=== PATIENT | male | born 1945 | race Caucasian/White ===

== ENCOUNTER → 2018-04-17 12:44 | Outpatient (CLI) | payer OTHER, SELFPAY ==
[2018-04-17 15:21] LABS: Blood Urea Nitrogen 18 mg/dL (9-20); Calcium 9.9 mg/dL (8.4-10.2); Carbon Dioxide 28 mmol/L (22-32); Chloride 100 mmol/L (98-107); Estimated Glomerular Filt Rate 59.7 mL/min (>60); Glucose 93 mg/dL (80-110); HEMOLYSIS < 15 (0-50); Potassium 5.2 mmol/L (3.4-5.1); Sodium 140 mmol/L (137-145)
== END ==
PROVIDERS: PCP Family Medicine; Visit Provider Family Medicine
DX: N18.3 Chronic kidney disease, stage 3 (moderate) (principal)
CPT/HCPCS: 36415; 80048

== ENCOUNTER → 2019-06-09 09:21 | Outpatient (CLI) | payer OTHER, SELFPAY ==
[2019-06-09 11:08] LABS: BUN Creatinine Ratio 15.5 (6-22); Blood Urea Nitrogen 17 mg/dL (9-20); Carbon Dioxide 23 mmol/L (22-32); Chloride 104 mmol/L (98-107); Estimated Glomerular Filt Rate > 60.0 mL/min (>60); Glucose 106 mg/dL (80-110); HEMOLYSIS < 15 (0-50); Potassium 4.6 mmol/L (3.4-5.1); Sodium 139 mmol/L (137-145)
== END ==
PROVIDERS: PCP Student in an Organized Health Care Education/Training Program; Visit Provider Student in an Organized Health Care Education/Training Program
DX: N18.3 Chronic kidney disease, stage 3 (moderate) (principal); E55.9 Vitamin D deficiency, unspecified
CPT/HCPCS: 36415; 80048; 82306

== ENCOUNTER 2020-10-12 15:30 | Emergency (ER) | payer OTHER, SELFPAY ==
[2020-10-12 15:43] VITALS: BP 151/73; PULSE 69; RESP 16; TEMP 36.4; O2SAT 97; BMI 31.5
--- NOTE | 2020-10-12 15:50 | ED.EXTPRO ---
HPI - Extremity Problem <JULIO DouglasP - Last Filed: 10/12/20 16:36> General Chief complaint: Extremity Problem,Nontraumatic Stated complaint: thinks broke his right foot Time Seen by Provider: 10/12/20 15:39 Source: patient Mode of arrival: Wheelchair Limitations: no limitations History of Present Illness HPI Narrative: This is a 75-year-old male, former smoker, who has past medical history significant for hyperlipidemia and cataract surgery presents to ED with chief complain of right lateral foot pain for last 3 days. Patient reports he was fishing when he noticed the onset of pain and wearing a boot and walked around alot on a boat. Patient reports swelling and redness to left lateral foot. Denies noticing any open skin or skin injury. He denies history of gout. Denies fever, chills, nausea or vomiting. Patient was not able to recall twisting his ankle or injuring his foot. Patient has been walking on his heel since this aggravates discomfort. Patient reports intact sensation distally. Also pain increases with stretching lateral foot ligaments such as inverting of the ankle. He had taken ibuprofen last night for discomfort. Related Data Home Medications Medication Instructions Recorded Confirmed famotidine 10 mg tablet 10 mg PO QDAY #0 01/03/19 07/22/20 Previous Rx's Medication Instructions Recorded simvastatin 10 mg tablet 10 mg PO BEDTIME #90 tab 03/31/20 Allergies Allergy/AdvReac Type Severity Reaction Status Date / Time niacin [NIACIN] Allergy Severe SEVERE Verified 10/12/20 16:01 FLUSHING dust Allergy Intermediate ITCHY Uncoded 10/12/20 16:01 WATERY EYES, CONGESTION, SNEEZING Review of Systems <JULIO DouglasP - Last Filed: 10/12/20 16:36> Review of Systems Narrative: General: Denies fever, chills, fatigue, malaise, sweats. Respiratory: Denies dyspnea, cough, wheezing, hemoptysis, sputum. Cardiovascular: Denies chest pain, palpitations, orthopnea, edema. Gastrointestinal: Denies nausea, vomiting, abdominal pain, diarrhea, constipation, melena. : Denies dysuria, frequency, incontinence, hematuria, urinary retention. Musculoskeletal: See HPI Skin: See HPI Patient History <JULIO DouglasP - Last Filed: 10/12/20 16:36> Medical History Chicken pox Chronic back pain (~1998) Foot pain (~1994) Fractures Hearing loss Hemorrhoid (~2016) Hyperlipidemia Measles Mumps Ruptured disk (~1999) Seasonal allergies (~1989) Vision disorder Surgical History Anesthesia History of colonoscopy Family History Father Cancer Mother Hypertension Brother Heart disease Hyperlipidemia Hypertension Grandmother Diabetes mellitus Social History Smoking Status: Former smoker Smoking Status: Former smoker alcohol intake frequency: 0-2 drinks per day Substance Use Type: does not use Exam <MARGARITO Douglas - Last Filed: 10/12/20 16:36> Narrative Exam Narrative: General appearance: well developed, well nourished, in no acute distress. Head: normocephalic, atraumatic, no scalp lesions, non-tender. ENT: Hearing grossly intact. Airway patent. Neck/Thyroid: neck supple, full range of motion, no visible masses or meningeal signs. No JVD, non-tender without lymphadenopathy. Skin: Warm and dry and appropriate color for ethnicity. Mild diet fused erythema to dorsal aspect of lateral foot in 4th and little toe and metatarsal. No significant warm to touch in left foot when compared with right foot. No open skin lesions or puncture wound appreciated on left foot in dorsal, lateral or plantar aspect. Heart: no clubbing, no cyanosis, no edema. Lungs: Breathing even and unlabored. No stridor. No accessory muscles used. Able to speak in full sentences. Chest: normal shape and expansion. Abdomen: non-obese, non-distended. Neurologic: alert and oriented. Cognitive exam, RUBBER TUBING BACKER and PNS grossly intact on informal exam. Psych: good eye contact, normal affect. Initial Vital Signs Initial Vital Signs: Vital Signs Temperature 97.6 F 10/12/20 15:43 Pulse Rate 69 10/12/20 15:43 Respiratory Rate 16 10/12/20 15:43 Blood Pressure 151/73 H 10/12/20 15:43 Pulse Oximetry 97 10/12/20 15:43 Extrem Right lower extremity: ankle Details: normal to inspection, no edema and normal ROM; no swelling and foot Details: normal capillary refill, abnormal to inspection, tenderness, toes with normal ROM, edema Location: of the dorsal foot Location: laterally, vascular exam Details: dorsalis pedis pulse present, tendon exam Details: active flexion normal and active extension normal and motor-sensory exam Details: light-touch normal; no abrasion, no laceration, no ecchymosis, no crepitus, no foreign bodies and no puncture wound <Marely Nelson DO - Last Filed: 10/15/20 10:05> Initial Vital Signs Initial Vital Signs: Vital Signs Temperature 97.6 F 10/12/20 15:43 Pulse Rate 69 10/12/20 15:43 Respiratory Rate 16 10/12/20 15:43 Blood Pressure 151/73 H 10/12/20 15:43 Pulse Oximetry 97 10/12/20 15:43 Scores <MARGARITO Douglas - Last Filed: 10/12/20 16:36> GCS Rachelle coma scale eye opening: Spontaneous [place] coma scale verbal response: Orientated Rachelle coma scale motor response: Obey commands [place] coma scale total score: 15 qSOFA Altered Mental Status (GCS <15): No Respiratory rate greater than/equal to 22: No Systolic blood pressure less than or equal to 100: No qSOFA Total: 0 0-1 Not High Risk 1-3 High risk Course <MARGARITO Douglas - Last Filed: 10/12/20 16:36> Orders Ordered: Discontinued Medications Acetaminophen (Acetaminophen 325 Mg Tablet) 650 mg PO NOW ONE Stop: 10/12/20 15:50 Last Admin: 10/12/20 16:02 Dose: 650 mg Documented by: TEODORO Ibuprofen (Ibuprofen 400 Mg Tablet) 400 mg PO NOW ONE Stop: 10/12/20 15:50 Last Admin: 10/12/20 16:02 Dose: 400 mg Documented by: TEODORO Vital Signs Vital signs: Vital Signs - 8 hr 10/12/20 15:43 Temperature 97.6 F Pulse Rate 69 Respiratory Rate 16 Blood Pressure 151/73 H Pulse Oximetry 97 <Marely Nelson DO - Last Filed: 10/15/20 10:05> Orders Ordered: Discontinued Medications Acetaminophen (Acetaminophen 325 Mg Tablet) 650 mg PO NOW ONE Stop: 10/12/20 15:50 Last Admin: 10/12/20 16:02 Dose: 650 mg Documented by: TEODORO Ibuprofen (Ibuprofen 400 Mg Tablet) 400 mg PO NOW ONE Stop: 10/12/20 15:50 Last Admin: 10/12/20 16:02 Dose: 400 mg Documented by: TEODORO Vital Signs Vital signs: Vital Signs - 8 hr 10/12/20 15:43 Temperature 97.6 F Pulse Rate 69 Respiratory Rate 16 Blood Pressure 151/73 H Pulse Oximetry 97 MDM - Extremity (Nontraumatic) <MARGARITO Douglas - Last Filed: 10/12/20 16:36> Differential Diagnosis Differential diagnosis: Likely cellulitis and other (fracture, contusion, foot strain) Medical Records Attestation: I reviewed the patient's medical records. Imaging Data XR-Foot RT: Radiologist's Impression: [address] [id number] ReportSigned Patient: Jt Collins RMR#: [id number]: [id number]:[id number]/Sex: 75 / MDate of Service: 10/12/20Loc: EDAccession Number: [id number] Procedure: XR foot RT min 3V Ordering Provider: Kiet Luque PROCEDURE: XR FOOT RT MIN 3V INDICATIONS: lateral foot pain, swelling TECHNIQUE: 3 views of the foot were acquired. COMPARISON: None. FINDINGS: Bones: No fractures or dislocations. No suspicious bony lesions. Age-appropriate bony degenerative changes are seen. A plantar calcaneal spur is seen. Toe alignment abnormalities are seen. Soft tissues: No tibiotalar joint effusion. Achilles tendon appears normal. IMPRESSION: Unremarkable foot plain films for age. Specifically, the 5th metatarsal is unremarkable in this patient with a given history of lateral foot pain and swelling. Dictated by: Matt Nguyen M.D. on 10/12/2020 at 15:20 Approved by: Matt Nguyen M.D. on 10/12/2020 at 15:21 [facility] Narrative Medical decision making narrative: This is a 75-year-old gentleman who presents to ED with right lateral foot pain, swelling and mild redness after he walked a lot and a fishing boat 3 days ago. Patient reports pain is dorsal and plantar aspect of lateral foot. Patient denies constitutional symptoms. Patient is afebrile within normal tensive and heart rate. Patient has intact sensation and distal pulses with brisk cap refill. X-ray test shows no acute findings or bony lesions. Considered for cellulitis but without affected site hot to touch, with normal vital signs, no constitutional symptoms will treat patient's discomfort as foot strain. Apply Heber wrap affected foot for comfort and advised RICE therapy for next 2-3 days and crutch dispensed with teaching. Patient advised to monitor for signs and symptoms for infection with hot to touch, worsening redness, swelling, pain and fever/chills with return precautions. Patient verbalized understanding in agreement with the treatment plan. Discharge Plan Departure Patient Disposition: Home Clinical Impression: Foot sprain Qualifiers: Encounter type: initial encounter Laterality: right Qualified Code(s): S93.601A - Unspecified sprain of right foot, initial encounter Instructions: DI for Foot Sprain Activity Restrictions/Additional Instructions: You have been diagnosed with [right foot strain/sprain. No acute findings according to x-ray test. Please use Heber wrap and crutches for discomfort.]. What to do: *Take your medications as directed. You can use [id number] Tylenol and or Motrin as needed for discomfort. Please use Motrin with food to decrease GI irritations. *Follow up with your primary care provider in 2-3 days, call for an appointment. Let them know you were seen in the ED and that we asked you to be seen in follow up. *Return to ED if you have any new, worsening, or concerning symptoms, such as [signs and symptoms for infection such as increasing redness/warmth/swelling/fever or chills, chest pain, breathing difficulty, unable to tolerate fluids, or any acute concerns]. Prescriptions: No Action famotidine [Pepcid AC] 10 mg tablet 10 mg PO QDAY Qty: 0 RF: 0 simvastatin 10 mg tablet 10 mg PO BEDTIME Qty: 90 RF: 2 Referrals: Eugene Ramirez MD [Primary Care Provider] - <Marely Nelson DO - Last Filed: 10/15/20 10:05> Cosign ED Attending Aliviaature Attestation: I was immediately available in the department for consultation. Documentation has been reviewed. I agree with assessment and plan.
[2020-10-12] MEDS: IBUPROFEN 400 MG TABLET PO (16:02)
[2020-10-12] MEDS: ACETAMINOPHEN 325 MG TABLET 650 MG PO (16:02)
== END 2020-10-12 16:43 | disposition home or self-care (01) ==
PROVIDERS: Emergency Provider Nurse Practitioner Family; PCP Student in an Organized Health Care Education/Training Program
DX: S93.601A Unspecified sprain of right foot, initial encounter (principal)
CPT/HCPCS: 73630; 99283

== ENCOUNTER → 2022-01-26 18:41 | Outpatient (CLI) | payer OTHER, SELFPAY ==
--- NOTE | 2022-01-26 18:42 | DI.MRI.S_ITS ---
PROCEDURE: MR LUMBAR SPINE WO CON INDICATIONS: Acute on chronic lumbar pain with R sciatica TECHNIQUE: Noncontrast sagittal T1 spin echo and T2 fast echo, sagittal STIR, and T2 fast spin echo through the lumbar spine. In cases with scoliosis, additional coronal T2 fast spin echo may be performed. COMPARISON: [facility], MR, L-SPINE WITHOUT CONTRAST, 04/15/2017, 9:12. FINDINGS: Image quality: Excellent. Alignment and Curvature: Trace degenerative retrolisthesis of L2 on L3. Grade 1 retrolisthesis of L3 on L4 measuring approximately 8 mm. Bone Marrow: Marrow is of normal overall signal. No acute vertebral body compression fractures. Spinal Cord: Conus medullaris terminates at the T12-L1 level. Visualized cord demonstrates normal signal and size. Paraspinous Soft Tissues: No paravertebral masses. T12-L1: No canal stenosis or foraminal stenosis. L1-L2: Bilateral facet hypertrophy. No canal stenosis or foraminal stenosis. L2-L3: Mild disc bulge. Bilateral facet hypertrophy, right greater than left. No significant canal stenosis. Mild bilateral foraminal stenosis. L3-L4: Interval increase in retrolisthesis of L3 on L4, previously approximately 4 mm and now approximately 8 mm. Associated mild disc bulge. Bilateral facet hypertrophy. Kfvd-ai-xovuppem canal stenosis. Moderate to severe bilateral foraminal narrowing with flattening deformity on the exiting bilateral L3 nerve roots. L4-L5: Interval progression of findings. Increased diffuse disc bulge. Superimposed right posterior lateral disc protrusion. Prominent bilateral facet hypertrophy. Moderate central canal stenosis and severe right lateral recess stenosis. Moderate to severe right foraminal narrowing with flattening deformity on the exiting right L4 nerve root. Mild to moderate left foraminal narrowing. L5-S1: Prominent bilateral facet hypertrophy. No central canal stenosis. Moderate left foraminal narrowing with flattening deformity on the exiting left L5 nerve root. IMPRESSION: 1. Underlying multilevel facet arthropathy. 2. Progressive findings at L3-L4 and L4-L5. 3. At L3-L4 there is interval increase in retrolisthesis of L3 on L4. There is wony-wy-eefcvzvr canal stenosis and moderate to severe bilateral foraminal stenosis. 4. At L4-L5, there is moderate central canal stenosis, severe right lateral recess stenosis, and moderate to severe right foraminal narrowing. Dictated by: Lloyd Cordoba M.D. on 01/27/2022 at 8:48 Approved by: Lloyd Cordoba M.D. on 01/27/2022 at 8:58
== END ==
PROVIDERS: PCP Student in an Organized Health Care Education/Training Program; Referring Provider Student in an Organized Health Care Education/Training Program; Visit Provider Student in an Organized Health Care Education/Training Program
DX: M47.26 Other spondylosis with radiculopathy, lumbar region (principal); M47.27 Other spondylosis with radiculopathy, lumbosacral region; M48.061 Spinal stenosis, lumbar region without neurogenic claudication
CPT/HCPCS: 72148

== ENCOUNTER → 2022-04-26 14:24 | Outpatient (CLI) | payer OTHER, SELFPAY ==
--- NOTE | 2022-04-26 14:25 | DI.RAD.S_ITS ---
PROCEDURE: XR KNEE LT 3V INDICATIONS: swollen left knee TECHNIQUE: 3 views of the knee were acquired. COMPARISON: [facility], KNEE 3V RIGHT, 04/18/2012, 9:42. [facility], , KNEE 3V LEFT, 04/18/2012, 9:41. FINDINGS: Bones: No fractures or dislocations. No suspicious bony lesions. Have minimal medial compartment joint space loss and spurring, probable medial patellofemoral compartment narrowing. Soft tissues: No definite joint effusion. No suspicious soft tissue calcifications. IMPRESSION: 1. No acute osseous abnormality. If symptoms persist, follow-up radiographs and/or CT or MRI may be helpful for further evaluation. 2. Minimal degenerative changes of the knee. Dictated by: Sunny Beard M.D. on 04/26/2022 at 14:50 Approved by: Sunny Beard M.D. on 04/26/2022 at 14:55
== END ==
PROVIDERS: PCP Student in an Organized Health Care Education/Training Program; Referring Provider Student in an Organized Health Care Education/Training Program; Visit Provider Student in an Organized Health Care Education/Training Program
DX: M25.562 Pain in left knee (principal); M25.462 Effusion, left knee
CPT/HCPCS: 73562

== ENCOUNTER → 2022-12-15 12:51 | Outpatient (CLI) | payer OTHER, SELFPAY ==
[2022-12-16 18:12] LABS: Fecal Immunochemical Test Negative (Negative)
== END ==
PROVIDERS: PCP Student in an Organized Health Care Education/Training Program; Referring Provider Student in an Organized Health Care Education/Training Program; Visit Provider Student in an Organized Health Care Education/Training Program
DX: Z12.11 Encounter for screening for malignant neoplasm of colon (principal)
CPT/HCPCS: 82274

== ENCOUNTER → 2023-07-20 09:29 | Outpatient (CLI) | payer OTHER, SELFPAY ==
--- NOTE | 2023-07-20 09:34 | DI.RAD.S_ITS ---
PROCEDURE: XR ANKLE RT MIN 3V INDICATIONS: swollen, painful R foot TECHNIQUE: 3 views of the ankle were acquired. COMPARISON: None. FINDINGS: Bones: No fractures or dislocations. Ankle mortise is normally aligned. No suspicious bony lesions. Soft tissues: No tibiotalar joint effusion. Achilles tendon appears normal. IMPRESSION: No acute radiographic findings. If pain persists, followup imaging in 5-7 days is recommended to exclude occult fracture. Dictated by: Bridgette Pulido M.D. on 07/20/2023 at 12:58 Approved by: Bridgette Pulido M.D. on 07/20/2023 at 12:59
--- NOTE | 2023-07-20 09:34 | DI.RAD.S_ITS ---
PROCEDURE: XR FOOT RT MIN 3V INDICATIONS: swollen, painful R foot TECHNIQUE: 3 views of the foot were acquired. COMPARISON: [facility], , XR FOOT RT MIN 3V, 10/12/2020, 15:57. FINDINGS: Bones: No fractures or dislocations. No suspicious bony lesions. Soft tissues: No tibiotalar joint effusion. Achilles tendon appears normal. IMPRESSION: No acute radiographic findings. If pain persists, followup imaging in 5-7 days is recommended to exclude occult fracture. Dictated by: Bridgette Pulido M.D. on 07/20/2023 at 12:59 Approved by: Bridgette Pulido M.D. on 07/20/2023 at 13:00
[2023-07-20 10:28] LABS: Add Manual Diff / Slide Review NO; Basophils Absolute Auto 0 /uL (0-100); Basophils Percent Auto 0.6 % (0-2); Eosinophils Absolute Auto 200 /uL (0-450); Eosinophils Percent Auto 2.2 % (2-4); Hematocrit 41.3 % (41-53); Hemoglobin 14.5 g/dL (13.5-17.5); Lymphocytes Absolute Auto 1700 /uL (1100-4500); Lymphocytes Percent Auto 23.2 % (25-40); Mean Corpuscular Hemoglobin 30.5 PG (26-34); Monocytes Absolute Auto 700 /uL (0-900); Monocytes Percent Auto 9.8 % (3-14); Neutrophils Absolute Auto 4700 /uL (1500-7000); Neutrophils Percent Auto 64.2 % (50-75); Platelet Count 240 X10^3/uL (150-400); Red Blood Cell Count 4.75 X10^6/uL (4.5-5.9); Red Cell Distribution Width 13.7 % (11.6-14.8); White Blood Cell Count 7.3 X10^3/uL (4.5-11.0)
[2023-07-20 10:36] LABS: Hemoglobin A1C% w Est Avg Glu 5.9 % (4.0-6.0)
[2023-07-20 10:47] LABS: Alanine Aminotransferase 31 IU/L (<50); Albumin 3.9 g/dL (3.5-5.0); Albumin Globulin Ratio 1.2 (1.0-2.8); Alkaline Phosphatase 52 U/L (38-126); Aspartate Aminotransferase 25 IU/L (17-59); BUN Creatinine Ratio 17.1 (6-22); Bilirubin Total 0.6 mg/dL (0.2-1.3); Blood Urea Nitrogen 18 mg/dL (9-20); Calcium 9.7 mg/dL (8.4-10.2); Carbon Dioxide 22 mmol/L (22-32); Chloride 106 mmol/L (98-107); Cholesterol 128 mg/dL (140-199); Estimated Glomerular Filt Rate > 60 mL/min (>60); Globulin 3.2 g/dL (1.7-4.1); Glucose 116 mg/dL (80-110); HDL Cholesterol 38 mg/dL (40-60); HEMOLYSIS < 15 (0-50); LDL Cholesterol Calculated 56 mg/dL (<100); Potassium 4.2 mmol/L (3.4-5.1); Sodium 138 mmol/L (137-145); Total Protein 7.1 g/dL (6.3-8.2); Triglycerides 169 mg/dL (35-150); Uric Acid 6.2 mg/dL (3.5-8.5)
[2023-07-21 17:27] LABS: Hep C Virus Ab w/Reflex Quant NEGATIVE s/c (NEGATIVE)
== END ==
PROVIDERS: Family Medicine; PCP Physician Assistant; Referring Provider Physician Assistant; Visit Provider Physician Assistant
DX: E78.2 Mixed hyperlipidemia (principal); S99.921A Unspecified injury of right foot, initial encounter; N18.30 Chronic kidney disease, stage 3 unspecified; Z00.00 Encounter for general adult medical examination without abnormal findings; X58.XXXA Exposure to other specified factors, initial encounter
CPT/HCPCS: 36415; 73610; 73630; 80053; 80061; 83036; 84550; 85025; 86803